=== PATIENT | female | born 1995 | race Caucasian/White ===

== ENCOUNTER 2018-04-29 12:32 | Inpatient (IN) | payer MEDICAID ==
[2018-04-29 13:20] LABS: ADD UMIC NO; UR ASCORBIC ACID NEGATIVE (NEGATIVE); UR BILIRUBIN (Dip) NEGATIVE (NEGATIVE); UR BLOOD (Dip) NEGATIVE (NEGATIVE); UR CLARITY CLEAR (CLEAR); UR COLOR YELLOW (YELLOW); UR GLUCOSE (Dip) NEGATIVE (NEGATIVE); UR KETONES (Dip) TRACE mg/dL (NEGATIVE); UR LEUKOCYTE ESTERASE (Dip) NEGATIVE Leu/ul (NEGATIVE); UR NITRITE (Dip) NEGATIVE (NEGATIVE); UR SPECIFIC GRAVITY (Dip) 1.011 (1.003-1.030); UR TOTAL PROTEIN (Dip) NEGATIVE (NEGATIVE); UR UROBILINOGEN (Dip) NEGATIVE (NEGATIVE)
[2018-04-29] MEDS ORDERED: LACTATED RINGER'S 1,000 ML IV (15:13)
[2018-04-29] MEDS: LACTATED RINGER'S 1,000 ML IV* ×2 (15:23→15:50)
[2018-04-29] MEDS ORDERED: CARBOPROST 250 MCG INJ IM ×2 (15:30→21:30)
[2018-04-29] MEDS ORDERED: MISOPROSTOL 200 MCG TAB PR ×2 (15:30→21:30)
[2018-04-29] MEDS ORDERED: OXYTOCIN 30 UNITS/LR 500 ML IV ×3 (15:30→21:30)
[2018-04-29] MEDS ORDERED: METHYLERGONOVINE 0.2 MG INJ IM ×2 (15:30→21:30)
[2018-04-29] MEDS ORDERED: ACETAMINOPHEN/CODEINE #3 TAB PO (15:30)
[2018-04-29] MEDS ORDERED: BUTORPHANOL 2 MG INJ IV (15:30)
[2018-04-29] MEDS ORDERED: LIDOCAINE 1% (MPF) 30 ML INJ INJ (15:30)
[2018-04-29] MEDS ORDERED: IBUPROFEN 600 MG TAB PO (15:30)
[2018-04-29 15:44] LABS: ADD MAN DIFF? NO
[2018-04-29 15:47] LABS: BASOPHILS % 0.3 % (0.0-2.0); EOSINOPHILS % 0.5 % (0.0-7.0); HEMATOCRIT 31.6 % (37.0-47.0); LYMPHOCYTES # 1.3 10^3/ul (0.8-2.9); LYMPHOCYTES % 15.7 % (15.0-51.0); MEAN CORPUSCULAR HEMOGLOBIN 25.6 pg (29.0-33.0); MEAN CORPUSCULAR HGB CONC 31.6 g/dl (32.0-37.0); MEAN PLATELET VOLUME 10.9 fl (7.4-10.4); MONOCYTE # 0.5 10^3/ul (0.3-0.9); MONOCYTES % 5.8 % (0.0-11.0); NEUTROPHIL # 6.2 10^3/ul (1.6-7.5); NEUTROPHILS % 77.1 % (39.0-77.0); PLATELET COUNT 259 10^3/UL (140-415); RED CELL DISTRIBUTION WIDTH 13.9 % (11.5-14.5)
[2018-04-29] MEDS ORDERED: LIDOCAINE 0.5% (SDV) 50 ML INJ (15:53)
[2018-04-29] MEDS: AMPICILLIN 2 GM/NS (PMX) 100 ML IVPB (15:54)
[2018-04-29 16:06] LABS: INR 0.97
[2018-04-29 16:07] LABS: PARTIAL THROMBOPLASTIN TIME 29.2 Sec (23.0-35.0)
[2018-04-29] MEDS: LIDOCAINE 0.5% (SDV) 50 ML INJ INFIL (16:30)
[2018-04-29 16:43] LABS: HEPATITIS B SURFACE ANTIGEN NEGATIVE (NEGATIVE)
[2018-04-29] MEDS: OXYTOCIN 30 UNITS/LR 500 ML IV ×3 (17:40→23:29)
[2018-04-29 17:52] LABS: AMPHETAMINE/METHAMPHETAMINE Negative (NEGATIVE); BARBITURATES Negative (NEGATIVE); BENZODIAZEPINES Negative (NEGATIVE); COCAINE Negative (NEGATIVE); OPIATES Negative (NEGATIVE)
[2018-04-29 17:53] LABS: CANNABINOIDS Negative (NEGATIVE)
[2018-04-29] MEDS ORDERED: AMPICILLIN 1 GM/NS (PMX) 50 ML IVPB (19:30)
[2018-04-29] MEDS ORDERED: NACL 0.9% 3 ML SYG IV (21:30)
[2018-04-29] MEDS ORDERED: OXYCODONE/ASPIRIN (4.88/325) TAB PO (21:30)
[2018-04-29] MEDS ORDERED: ZOLPIDEM 5 MG TAB PO (21:30)
[2018-04-29] MEDS ORDERED: SENNA/DOCUSATE NA (8.6MG/50MG) TAB PO (21:30)
[2018-04-29] MEDS: BENZOCAINE 20% 56 ML SPRAY TOP (22:31)
[2018-04-29] MEDS: WITCH HAZEL/GLYCERIN PAD PR (22:31)
[2018-04-29] MEDS: SENNA/DOCUSATE NA (8.6MG/50MG) TAB PO (22:31)
[2018-04-29] MEDS: LANOLIN 7 GM TUBE TOP (22:32)
[2018-04-29 22:53] LABS: RAPID PLASMA REAGIN NONREACTIVE (NR)
[2018-04-29] MEDS: IBUPROFEN 600 MG TAB PO (23:24)
[2018-04-30] MEDS: IBUPROFEN 600 MG TAB PO ×4 (05:29→23:34)
[2018-04-30 07:14] LABS: ADD MAN DIFF? NO
[2018-04-30 07:19] LABS: BASOPHILS % 0.3 % (0.0-2.0); EOSINOPHILS # 0.1 10^3/ul (0.0-0.5); EOSINOPHILS % 0.7 % (0.0-7.0); HEMATOCRIT 26.4 % (37.0-47.0); HEMOGLOBIN 8.6 g/dl (12.0-16.0); LYMPHOCYTES # 1.4 10^3/ul (0.8-2.9); LYMPHOCYTES % 18.6 % (15.0-51.0); MEAN CORPUSCULAR HEMOGLOBIN 25.8 pg (29.0-33.0); MEAN CORPUSCULAR HGB CONC 32.6 g/dl (32.0-37.0); MEAN CORPUSCULAR VOLUME 79.3 fl (82.0-101.0); MONOCYTE # 0.7 10^3/ul (0.3-0.9); MONOCYTES % 9.6 % (0.0-11.0); NEUTROPHIL # 5.3 10^3/ul (1.6-7.5); NEUTROPHILS % 70.3 % (39.0-77.0); PLATELET COUNT 207 10^3/UL (140-415); RED BLOOD COUNT 3.33 10^6/ul (4.20-5.40); RED CELL DISTRIBUTION WIDTH 13.8 % (11.5-14.5)
[2018-04-30 07:19] LABS: WHITE BLOOD COUNT 7.5 10^3/ul (4.8-10.8)
[2018-04-30] MEDS: SENNA/DOCUSATE NA (8.6MG/50MG) TAB PO ×2 (08:47→21:00)
[2018-05-01] MEDS: IBUPROFEN 600 MG TAB PO ×2 (05:35→12:25)
[2018-05-01] MEDS: SENNA/DOCUSATE NA (8.6MG/50MG) TAB PO (09:33)
[2018-05-01] MEDS: DIPHTH/TET/ACEL PERTUSS (ADULT) 0.5 ML VIAL IM* (09:33)
== END 2018-05-01 14:00 | disposition home or self-care (01) | DRG 807 ==
LOC: OBT 12:32 → L-D 12:32 → OBT 15:05 → L-D 15:05 → PP1 20:45
PROC: 10E0XZZ Delivery of Products of Conception, External Approach (ICD-10-PCS; principal; 2018-04-29)
DX: O80 Encounter for full-term uncomplicated delivery (principal); Z37.0 Single live birth; Z3A.40 40 weeks gestation of pregnancy
CPT/HCPCS: 76815; 76818; 80307; 81003; 85025; 85610; 85730; 86592; 86850; 86900; 86901; 87340